=== PATIENT | male | born 1990 | race Caucasian/White ===

== ENCOUNTER 2024-04-12 10:49 | Inpatient (IN) | payer BC ==
[2024-04-12] MEDS ORDERED: Ipratropium/Albuterol 3 ML NEB ONE ×2 (11:00→11:40)
[2024-04-12] MEDS ORDERED: methylPREDNISolone Sod Succ/PF 125 MG/2 ML VIAL ONE (11:42)
[2024-04-12] MEDS ORDERED: Magnesium 2 GM/50 ML BAG (IN WATER) ONE (11:42)
[2024-04-12 12:00] LABS: #Basophils 0.07 10x3/uL (0.0-0.2); #Eosinphils 0.28 10x3/uL (0.0-0.5); #Monocytes 0.77 10x3/uL (0.0-1.1); #Neutrophils 10.39 10x3/uL (1.5-8.4); %Basophils 0.5 % (0.0-2.0); %Eosinophils 1.9 % (0.0-6.0); %Lymphocytes 17.8 % (18.0-47.0); %Monocytes 5.3 % (0.0-10.0); %Neutrophils 72.1 % (40.0-75.0); Hematocrit 42.6 % (38.8-50.0); Hemoglobin 14.4 g/dL (13.5-17.5); Mean Corpuscular HGB CONC 33.8 g/dL (32.0-36.0); Mean Corpuscular Hemoglobin 30.2 pg (27.0-33.0); Mean Corpuscular Volume 89.3 fL (81.2-95.1); Mean Platelet Volume 8.8 fL (7.4-10.4); Platelet Count 461 10x3/uL (150-450); RBC Distribution Width 12.4 % (11.5-14.5); Red Blood Cell (RBC) Count 4.77 10x6/uL (4.32-5.72); White Blood Cell (WBC) Count 14.4 10x3/uL (3.5-10.5)
[2024-04-12 12:13] LABS: ALT (SGPT) 52 U/L (8-55); AST (SGOT) 35 U/L (5-34); Albumin 3.6 g/dL (3.5-5.0); Alkaline Phosphatase 88 U/L (40-110); Anion Gap 16 mmol/L (10-20); BUN (Urea Nitrogen) 9 mg/dL (8.9-20.6); Bilirubin, Total 0.4 mg/dL (0.2-1.2); Calc. Creatinine Clearance 0 mL/min (70-130); Calcium 9.5 mg/dL (7.8-10.44); Carbon Dioxide 23 mmol/L (22-29); Chloride 99 mmol/L (98-107); Estimated GFR 120; Globulin 4.3 g/dL (2.4-3.5); Glucose 94 mg/dL (70-105); Potassium 4.4 mmol/L (3.5-5.1); Protein, Total 7.9 g/dL (6.0-8.3); Sodium 134 mmol/L (136-145)
[2024-04-12 12:19] LABS: Troponin I Less than 0.010 ng/mL (< 0.028)
[2024-04-12] MEDS ORDERED: LevoFLOXacin 750 mg/D5W 150 ml Premix Bag ONE (12:44)
[2024-04-12 13:01] LABS: Influenza A by NAA Not Detected (NotDetected); Influenza B by NAA Not Detected (NotDetected); SARS-CoV-2 NAA Rapid Test Not Detected (NotDetected)
[2024-04-12] MEDS ORDERED: Cyclobenzaprine 10 MG TAB PO PRN ×2 (13:26→13:30)
[2024-04-12] MEDS ORDERED: Ondansetron PF 4 MG/2 ML Vial IVP PRN (13:28)
[2024-04-12] MEDS ORDERED: Senokot S 8.6-50 MG TAB PO PRN ×2 (13:28→13:40)
[2024-04-12] MEDS ORDERED: Calcium Carbonate 500 MG ChewTAB PO PRN (13:28)
[2024-04-12] MEDS ORDERED: Iopamidol 370 76% 100 ML VIAL ONE (15:13)
[2024-04-12 18:06] VITALS: BMI 40.6
[2024-04-12] MEDS: cefTRIAXone\\ROCEPHIN 1 GM in Sodium Chloride 0.9% 100 ML IVPB SCH (18:34)
[2024-04-12] MEDS: Sodium Chloride 0.9% 1,000 ML IV SCH (18:35)
[2024-04-12] MEDS: Benzonatate 100 MG CAP PO SCH ×2 (18:35→19:07)
[2024-04-12] MEDS: Acetaminophen 325 MG TAB PO SCH (18:36)
[2024-04-12] MEDS: traMADol HCl 50 MG TAB PO SCH (18:47)
[2024-04-12] MEDS: guaiFENesin ER 600 MG TAB PO SCH (20:56)
[2024-04-12] MEDS: Azithromycin 500 MG in Sodium Chloride 0.9% 250 ML 250 ML IVPB SCH ×2 (20:57→21:01)
[2024-04-13 02:16] LABS: Legionella Urinary Ag Negative (Negative); Strep pneumo Urine Ag NEGATIVE (NEGATIVE)
[2024-04-13 03:27] LABS: #Basophils 0.07 10x3/uL (0.0-0.2); #Monocytes 0.82 10x3/uL (0.0-1.1); #Neutrophils 11.45 10x3/uL (1.5-8.4); %Basophils 0.5 % (0.0-2.0); %Lymphocytes 10.6 % (18.0-47.0); %Monocytes 5.6 % (0.0-10.0); %Neutrophils 78.7 % (40.0-75.0); Hematocrit 39.3 % (38.8-50.0); Mean Corpuscular HGB CONC 33.1 g/dL (32.0-36.0); Mean Corpuscular Volume 90.8 fL (81.2-95.1); Mean Platelet Volume 8.8 fL (7.4-10.4); Platelet Count 441 10x3/uL (150-450); RBC Distribution Width 12.4 % (11.5-14.5); Red Blood Cell (RBC) Count 4.33 10x6/uL (4.32-5.72); White Blood Cell (WBC) Count 14.6 10x3/uL (3.5-10.5)
[2024-04-13 03:43] LABS: ALT (SGPT) 45 U/L (8-55); AST (SGOT) 24 U/L (5-34); Albumin 3.2 g/dL (3.5-5.0); Alkaline Phosphatase 85 U/L (40-110); Anion Gap 17 mmol/L (10-20); BUN (Urea Nitrogen) 11 mg/dL (8.9-20.6); Bilirubin, Total 0.2 mg/dL (0.2-1.2); Calc. Creatinine Clearance 251 mL/min (70-130); Calcium 9.1 mg/dL (7.8-10.44); Carbon Dioxide 20 mmol/L (22-29); Chloride 105 mmol/L (98-107); Estimated GFR 120; Globulin 3.8 g/dL (2.4-3.5); Glucose 177 mg/dL (70-105); Potassium 4.6 mmol/L (3.5-5.1); Sodium 137 mmol/L (136-145)
[2024-04-13] MEDS: Enoxaparin 40 MG (0.4 mL) SYRINGE SC SCH (09:28)
[2024-04-13] MEDS: Dexamethasone 10 MG/ML VIAL SLOW IVP SCH (12:12)
[2024-04-13] MEDS: methylPREDNISolone Sod Succ 40 MG VIAL IVP SCH (23:05)
[2024-04-14 04:01] LABS: Anion Gap 14 mmol/L (10-20); BUN (Urea Nitrogen) 12 mg/dL (8.9-20.6); Calc. Creatinine Clearance 267 mL/min (70-130); Calcium 9.1 mg/dL (7.8-10.44); Carbon Dioxide 23 mmol/L (22-29); Chloride 105 mmol/L (98-107); Estimated GFR 123; Glucose 130 mg/dL (70-105); Potassium 4.9 mmol/L (3.5-5.1); Sodium 137 mmol/L (136-145)
[2024-04-14 04:07] LABS: Hematocrit 39.1 % (38.8-50.0); Hemoglobin 12.9 g/dL (13.5-17.5); Mean Corpuscular Hemoglobin 30.4 pg (27.0-33.0); Mean Corpuscular Volume 92.2 fL (81.2-95.1); Platelet Count 458 10x3/uL (150-450); RBC Distribution Width 12.5 % (11.5-14.5); Red Blood Cell (RBC) Count 4.24 10x6/uL (4.32-5.72); White Blood Cell (WBC) Count 15.8 10x3/uL (3.5-10.5)
[2024-04-14 04:08] LABS: MDiff Complete? YES
[2024-04-14 04:44] LABS: Band 6 % (5-11); Lymphocytes 10 % (21-51); Monocytes 2 % (0-10); Myelocyte 1 % (0-0); Neutrophil 81 % (42-75)
[2024-04-14 04:46] LABS: Large Platelets SLIGHT (None Seen); Platelet Adequacy Comment Appears Increased; RBC Morph Comment Within Normal Limits
[2024-04-14] MEDS: Albuterol 2.5 MG (3 mL) NEB NEB PRN (08:15)
[2024-04-15 04:25] LABS: #Basophils 0.06 10x3/uL (0.0-0.2); #Eosinphils 0.01 10x3/uL (0.0-0.5); #Neutrophils 12.91 10x3/uL (1.5-8.4); %Basophils 0.4 % (0.0-2.0); %Eosinophils 0.1 % (0.0-6.0); %Lymphocytes 14.7 % (18.0-47.0); %Monocytes 3.6 % (0.0-10.0); %Neutrophils 76.7 % (40.0-75.0); Hematocrit 40.2 % (38.8-50.0); Hemoglobin 13.3 g/dL (13.5-17.5); Mean Corpuscular HGB CONC 33.1 g/dL (32.0-36.0); Mean Corpuscular Hemoglobin 30.4 pg (27.0-33.0); Mean Platelet Volume 9.2 fL (7.4-10.4); Platelet Count 504 10x3/uL (150-450); RBC Distribution Width 12.5 % (11.5-14.5); Red Blood Cell (RBC) Count 4.37 10x6/uL (4.32-5.72); White Blood Cell (WBC) Count 16.8 10x3/uL (3.5-10.5)
[2024-04-15 04:29] LABS: Anion Gap 15 mmol/L (10-20); BUN (Urea Nitrogen) 17 mg/dL (8.9-20.6); Calc. Creatinine Clearance 261 mL/min (70-130); Calcium 9.3 mg/dL (7.8-10.44); Carbon Dioxide 24 mmol/L (22-29); Chloride 103 mmol/L (98-107); Estimated GFR 122; Glucose 128 mg/dL (70-105); Potassium 4.7 mmol/L (3.5-5.1); Sodium 137 mmol/L (136-145)
[2024-04-15] MEDS: methylPREDNISolone Sod Succ 40 MG VIAL IVP SCH ×2 (10:40→21:21)
[2024-04-15] MEDS: Mometasone/Formoterol 200/5 60 PUFF INH SCH ×2 (13:31→19:25)
[2024-04-16 04:34] LABS: Anion Gap 15 mmol/L (10-20); BUN (Urea Nitrogen) 20 mg/dL (8.9-20.6); Calc. Creatinine Clearance 275 mL/min (70-130); Calcium 9.4 mg/dL (7.8-10.44); Carbon Dioxide 25 mmol/L (22-29); Chloride 102 mmol/L (98-107); Estimated GFR 124; Glucose 138 mg/dL (70-105); Potassium 4.6 mmol/L (3.5-5.1); Sodium 137 mmol/L (136-145)
[2024-04-16] MEDS: methylPREDNISolone Sod Succ 40 MG VIAL IVP SCH (04:56)
[2024-04-17 03:45] LABS: #Monocytes 0.95 10x3/uL (0.0-1.1); #Neutrophils 18.21 10x3/uL (1.5-8.4); %Basophils 0.4 % (0.0-2.0); %Lymphocytes 9.5 % (18.0-47.0); %Monocytes 4.2 % (0.0-10.0); %Neutrophils 81.1 % (40.0-75.0); Hematocrit 40.5 % (38.8-50.0); Hemoglobin 13.8 g/dL (13.5-17.5); Mean Corpuscular HGB CONC 34.1 g/dL (32.0-36.0); Mean Corpuscular Hemoglobin 30.7 pg (27.0-33.0); Mean Corpuscular Volume 90.2 fL (81.2-95.1); Mean Platelet Volume 9.2 fL (7.4-10.4); Platelet Count 520 10x3/uL (150-450); RBC Distribution Width 12.4 % (11.5-14.5); Red Blood Cell (RBC) Count 4.49 10x6/uL (4.32-5.72); White Blood Cell (WBC) Count 22.5 10x3/uL (3.5-10.5)
[2024-04-17 03:53] LABS: Anion Gap 13 mmol/L (10-20); BUN (Urea Nitrogen) 19 mg/dL (8.9-20.6); Calc. Creatinine Clearance 290 mL/min (70-130); Calcium 9.2 mg/dL (7.8-10.44); Carbon Dioxide 25 mmol/L (22-29); Chloride 105 mmol/L (98-107); Estimated GFR 126; Glucose 121 mg/dL (70-105); Potassium 4.5 mmol/L (3.5-5.1); Sodium 138 mmol/L (136-145)
[2024-04-17] MEDS: Cefepime 2 GM in Sodium Chloride 0.9% 100 ML IVPB SCH (10:01)
[2024-04-17 11:57] VITALS: BP 117/58; TEMP 98
== END 2024-04-17 15:50 | disposition home or self-care (01) | DRG 193 ==
LOC: SUATTDRO 10:49 → CSHERS 10:49 → CSHTELE 13:28
PROVIDERS: ADMIT Internal Medicine; ATTEND Internal Medicine
DX: J18.9 Pneumonia, unspecified organism (principal); J96.01 Acute respiratory failure with hypoxia; Z68.41 Body mass index [BMI] 40.0-44.9, adult; E66.9 Obesity, unspecified; Z86.711 Personal history of pulmonary embolism
CPT/HCPCS: 36415; 71275; 80048; 80053; 83605; 83735; 83880; 84145; 84484; 85025; 86140; 87040; 87070; 87205; 87449; 87899; 93005; 94640; 94660; 94664; 94760; 94762; 96374; 96375; J0456; J0692; J0696; J1100; J1650; J1956; J2920; J2930; J3475; J3490; J7050; J7611; J7620; Q9967